=== PATIENT | female | born 1955 | race Asian ===

== ENCOUNTER 2023-05-07 08:34 | Outpatient (CLI) | payer MEDICARE | END 2023-05-07 08:35 | disposition home or self-care (01) | LOC: CSHMRI 08:34 | PROVIDERS: ATTEND Orthopaedic Surgery | DX: M23.203 Derangement of unspecified medial meniscus due to old tear or injury, right knee (principal); M94.8X6 Other specified disorders of cartilage, lower leg; M23.8X1 Other internal derangements of right knee; M25.461 Effusion, right knee; M23.221 Derangement of posterior horn of medial meniscus due to old tear or injury, right knee; M23.231 Derangement of other medial meniscus due to old tear or injury, right knee ==